=== PATIENT | male | born 1985 | race Caucasian/White ===

== ENCOUNTER 2023-05-03 15:56 | Emergency (ER) | payer MEDICAID ==
[~2023-05-03] VITALS: Ht 177.8 cm; Wt 93.6 kg
[2023-05-03 15:59] VITALS: TEMP 98.8
[2023-05-03] MEDS ORDERED: PROPARACAINE HCL 0.5% 15 ML OPHTHALMIC SOLUTION OU ONE (17:00)
[2023-05-03] MEDS ORDERED: FLUORESCEIN SODIUM 1 MG STRIP OU ONE (18:00)
[2023-05-03] MEDS ORDERED: LORazepam 1 MG TABLET PO ONE (18:30)
[2023-05-03] MEDS ORDERED: CIPR2.5D17 OU (19:14)
[2023-05-03] MEDS ORDERED: CIPROFLOXACIN HCL 0.3% 3.5 GM OPHTHALMIC OINTMENT OU ONE (19:15)
[2023-05-03 20:28] VITALS: BP 117/85; PULSE 80; RESP 18
== END 2023-05-03 20:30 | disposition home or self-care (01) ==
LOC: EMS 15:57
DX: T15.12XA Foreign body in conjunctival sac, left eye, initial encounter (principal); T15.11XA Foreign body in conjunctival sac, right eye, initial encounter; Z90.49 Acquired absence of other specified parts of digestive tract
CPT/HCPCS: 99283